=== PATIENT | female | born 1985 | race Two or more races ===

== ENCOUNTER 2016-08-30 03:14 | Inpatient (IN) | payer MEDICAID ==
[~2016-08-30 03:14] MED LIST: ALLERGY MEDICATION; LEVAQUIN250 MG PO; OC; ONE DAILY TABL0.4 MG PO; PRENATAL1 EACH PO; REGLAN5 MG PO
[2016-08-30] MEDS ORDERED: CLARITIN10 M6 PO (03:42)
[2016-08-30 04:31] LABS: BASO % 0.5 % (0-2); BASO ABSOLUTE COUNT 0.1 tho/cmm (0.0-0.2); EOSINOPHIL ABSOLUTE COUNT 0.2 tho/cmm (0.0-0.7); HCT-HEMATOCRIT 36.2 % (34.0-49.0); HGB-HEMOGLOBIN 12.5 gm/dl (12.0-15.5); MCH (MEAN CORPUSCULAR HGB) 33.5 pg (28.0-32.0); MCHC MEAN CORPUSCULAR HGB CONC 34.5 % (32.0-36.0); MCV (MEAN CELL VOLUME) 97.1 fl (82.0-96.0); MEAN PLATELET VOLUME 9.7 cmc (9.4-12.4); MONO % 8.2 % (0-12); MONOCYTE ABSOLUTE COUNT 0.9 tho/cmm (0.0-1.2); NEUTROPHIL ABSOLUTE COUNT 7.3 tho/cmm (1.6-8.0); NEUTROPHIL-AUTOMATED 7.3 tho/cmm (1.6-8.0); NEUTROPHILS % 70.3 % (40-80); PLATELET COUNT 231 tho/cmm (150-450); RED BLOOD COUNT 3.73 mil/cmm (4.00-5.20); RED CELL DISTRIBUTION WIDTH 12.4 % (12.4-16.4); WHITE BLOOD COUNT 10.4 tho/cmm (4.0-10.0)
[2016-08-30 04:42] LABS: INR 0.8 INR (0.9-1.1); PROTHROMBIN TIME 9.6 SECONDS (9.0-13.6)
[2016-08-30 21:01] LABS: MCV (MEAN CELL VOLUME) 94.3 fl (82.0-96.0); RED CELL DISTRIBUTION WIDTH 12.4 % (12.4-16.4)
[2016-08-30 21:21] LABS: HGB-HEMOGLOBIN 9.2 gm/dl (12.0-15.5)
[2016-08-30 21:22] LABS: HCT-HEMATOCRIT 26.5 % (34.0-49.0)
--- NOTE | 2016-08-31 00:24 | NUR ---
PT UP TO NICU PER WHEELCHAIR TO SEE BABY AT APPROXIMATELY 1945.
--- NOTE | 2016-08-31 00:24 | NUR ---
PT UP TO NICU TO SEE BABY IN WHEELCHAIR AT APPROXIMATELY 1945. PT TOLERATES ACTIVITY AND WOULD LIKE TO STAY FOR BABY FOR AWHILE. NICU NURSE CALLS THIS RN AT APPROXIMATELY 2004 SAYING THAT PT IS FEELING NAUSEATED AND APPEARS PALE AND PT REQUESTS TO GO BACK TO HER ROOM. THIS RN GOES TO NICU TO HELP PT BACK TO ROOM. PT IS NAUSEATED BUT HASN'T HAD AN EMESIS. WHILE ON THE RETURN TO PT'S ROOM, PT IS APPEARING TO FALL ASLEEP IN SHORT INTERVALS. PT WAKES EASILY AND SAYS SHE IS JUST VERY TIRED AND DOESN'T FEEL VERY WELL. THIS RN AND ANOTHER RN HELP PT BACK TO BED AND PT TOLERATES ACTIVITY OF GETTING BACK INTO BED. VITALS TAKEN AND FLUIDS ENCOURAGED. PT FALLING ASLEEP EASILY IN BED BUT AWAKES WHEN NURSE TALKS TO PT AND IS ORIENTED X3. PT DENIES ANY NAUSEA AT THIS TIME AND SAYS HER PAIN IS A 2-3 ON THE PAIN SCALE. PT RESTING COMFORTABLY. NURSE CHECKS VITALS AGAIN AND CALLS MD WITH UPDATE ON PT.
[2016-08-31 06:54] LABS: BASO % 0.1 % (0-2); HCT-HEMATOCRIT 23.9 % (34.0-49.0); HGB-HEMOGLOBIN 8.4 gm/dl (12.0-15.5); IMMATURE GRANULOCYTES ABSOLUTE 0.07 tho/cmm (0-0.03); IMMATURE GRANULOCYTES PERCENT 0.4 % (0-0.3); LYMPH % 10.5 % (20-45); MCH (MEAN CORPUSCULAR HGB) 33.2 pg (28.0-32.0); MCHC MEAN CORPUSCULAR HGB CONC 35.1 % (32.0-36.0); MCV (MEAN CELL VOLUME) 94.5 fl (82.0-96.0); MEAN PLATELET VOLUME 9.1 cmc (9.4-12.4); MONO % 6.1 % (0-12); MONOCYTE ABSOLUTE COUNT 1.1 tho/cmm (0.0-1.2); NEUTROPHIL ABSOLUTE COUNT 15.5 tho/cmm (1.6-8.0); NEUTROPHIL-AUTOMATED 15.5 tho/cmm (1.6-8.0); NEUTROPHILS % 82.9 % (40-80); PLATELET COUNT 197 tho/cmm (150-450); RED BLOOD COUNT 2.53 mil/cmm (4.00-5.20); RED CELL DISTRIBUTION WIDTH 12.8 % (12.4-16.4); WHITE BLOOD COUNT 18.7 tho/cmm (4.0-10.0)
--- NOTE | 2016-08-31 13:45 | NUR ---
Vital signs reported off to co-assign nurse.
[2016-09-03] MEDS ORDERED: IBUPROFEN800 M1 PO (13:51)
[2016-09-03] MEDS ORDERED: PERCOCET 5-3251 EACH PO (13:51)
[2016-09-03] MEDS ORDERED: FEOSOL325 M1 PO (13:52)
== END 2016-09-03 14:30 | DRG 765 ==
LOC: LDR 03:14 → OBGE 12:50
PROVIDERS: Obstetrics & Gynecology; ADMIT Obstetrics & Gynecology
PROC: 10D00Z1 Extraction of Products of Conception, Low, Open Approach (ICD-10-PCS; principal; 2016-08-30)
PROC: 4A1HXCZ Monitoring of Products of Conception, Cardiac Rate, External Approach (ICD-10-PCS; 2016-08-30)
DX: O60.14X0 Preterm labor third trimester with preterm delivery third trimester, not applicable or unspecified (principal); D62 Acute posthemorrhagic anemia; O46.93 Antepartum hemorrhage, unspecified, third trimester; Z3A.33 33 weeks gestation of pregnancy; Z37.0 Single live birth; O99.02 Anemia complicating childbirth
CPT/HCPCS: J0456; J0702; J1580; J2270; J3010; J3475; J7050; J7121